=== PATIENT | male | born 1965 | race Caucasian/White ===

== ENCOUNTER 2021-06-07 19:20 | Emergency (ER) | payer OTHER, SELFPAY ==
[2021-06-07 19:21] VITALS: BP 149/102; PULSE 98; RESP 16; TEMP 36.6; O2SAT 99; BMI 24.3
--- NOTE | 2021-06-07 19:47 | ED.RN ---
after triage was complete, pt requested ice pack and stated the swelling is going down with the ice and decided he felt like elbow was fine and did not need to be seen. This RN informed Nasra with [employer] that she did not need to come in anymore.
== END 2021-06-07 19:39 | disposition left against medical advice (07) ==
LOC: ED 19:41
DX: S59.901A Unspecified injury of right elbow, initial encounter (principal)